=== PATIENT | female | born 1985 | race Caucasian/White ===

== ENCOUNTER → 2025-03-15 | Outpatient (CLI) | payer MEDICAID, OTHER ==
[2025-03-15 12:28] LABS: PLATELET COUNT, AUTOMATED 308 10^3/uL (150-450)
[2025-03-15 12:58] LABS: ALT/SGPT 11 U/L (7.0-40); AST/SGOT 21 U/L (<34); CALCIUM LEVEL 9.5 MG/DL (8.5-10.1); CARBON DIOXIDE LEVEL 22 MMOL/L (20-31); CHLORIDE LEVEL 105 MMOL/L (98-107); CREATININE FOR GFR 0.85 MG/DL (0.55-1.30); GLOMERULAR FILTRATION RATE 88.2 (>58); POTASSIUM SERUM 3.1 MMOL/L (3.5-5.1); SODIUM LEVEL 142 MMOL/L (136-145)
[2025-03-15 13:00] LABS: TOTAL 25(OH) VITAMIN D 40.6 NG/ML (20.0-100.0)
== END ==
LOC: M LAB 12:03
PROVIDERS: ATTEND Nurse Practitioner Psychiatric/Mental Health
DX: F43.0 Acute stress reaction (principal)

== ENCOUNTER 2025-03-18 15:37 | Emergency (ER) | payer MEDICAID, OTHER ==
[~2025-03-18] VITALS: Ht 162.6 cm; Wt 54.2 kg
[2025-03-18 15:40] VITALS: BP 164/95; TEMP 98.3; O2SAT 100
== END 2025-03-18 16:16 | disposition left against medical advice (07) ==
LOC: M ED 15:37
DX: Z53.21 Procedure and treatment not carried out due to patient leaving prior to being seen by health care provider (principal)